=== PATIENT | male | born 1950 | race Caucasian/White ===

== ENCOUNTER → 2016-11-02 | Day surgery (SDC) | payer MEDICARE, BC ==
[2016-11-02] VITALS (9 sets, daily range): BP systolic 110–135; BP diastolic 54–78
[~2016-11-02] VITALS: Ht 182.9 cm; Wt 127.9 kg
[~2016-11-02] MED LIST: Atropine Inj 1mg/10ml Syr IV PRN; Bupivacaine w/Epi 0.25% 30ml Vial INJ ONE; CARTIA XT120 MG ORAL; Dexamethasone 4mg/ml vial ONE; DiphenhydrAMINE 50mg/ml Inj IVP PRN; FLECAINIDE ACE100 MG ORAL; Glycopyrrolate 0.2mg/ml 1ml Vial ONE; HYDROmorphone 1mg/ml Carpuject SUBQ PRN; Hydromorphone 0.5mg/0.5ml inj IVP PRN; Ketorolac 30mg Inj IV PRN; Ketorolac 60mg Inj IV PRN; LEVOTHYROXINE150 MCG ORAL; LIPITOR10 MG ORAL; LISINOPRIL10 MG ORAL; LORAZEPAM1 MG ORAL; LORazepam Inj 2mg/ml 1ml IV PRN; LR 1000ml 1,000 ML IVLG SCH; LR 1000ml ONE; Labetalol 5mg/ml 20ml vial IV PRN; Lidocaine 1% MPF 10mg/ml 5ml ONE; Meperidine 25mg/ml Inj IV PRN; Metoclopramide 10mg/2ml Inj IVP PRN; Midazolam 2mg/2ml Inj IVP PRN; Midazolam 2mg/2ml Inj ONE; NEXIUM20 M1 ORAL; NS Irrig 1000ml ONE; Neostigmine 1mg/ml 10ml Inj ONE; Norco 5mg/325mg tab ORAL PRN; Norco 7.5mg/325mg tab ORAL PRN; OXYCODONE HCL15 M1 ORAL; Oxycodone/Acetaminophen 5-325 ORAL PRN; Propofol 10mg/ml 20ml IV ONE; Sterile Water Irrig 1000ml IRRIG ONE; Tylenol #3 tab (300mg/30mg) ORAL PRN; XARELTO10 MG ORAL; Zemuron 50mg/5ml Inj IV ONE; fentaNYL 100 mcg/2 mL IV ONE; fentaNYL 100 mcg/2 mL IV PRN
--- NOTE | 2016-11-02 07:07 | Pre-Procedure Note/Attestation ---
Pre-Procedure Note/Attestation Complete Prior to Procedure Procedure Narrative: umbilical hernia repair Indications for Procedure Pre-Operative Diagnosis: umbilical hernia Attestation I attest that I discussed the nature of the procedure; its benefits; risks and complications; and alternatives (and the risks and benefits of such alternatives ), prior to the procedure, with the patient (or the patient's legal automobile rental representative). I attest that, if there was a reasonable possibility of needing a blood transfusion, the patient (or the patient's legal automobile rental representative) was given the [facility] standardized written summary, pursuant to the [place] Blood Safety Act ([place] Health and Safety Code # 1645, as amended). I attest that I re-evaluated the patient just prior to the surgery and that there has been no change in the patient's H&P, except as documented below: LISANDRO JENSEN Nov 02, 2016 07:07
--- NOTE | 2016-11-02 08:41 | Anethesia Preoperative Eval ---
Anesthesia Pre-op PMH/ROS General Date of Evaluation: Nov 02, 2016 Time of Evaluation: 08:36 Anesthesiologist: Edinson ASA Score: ASA 3 Mallampati Score Class I : Soft palate, uvula, fauces, pillars visible Class II: Soft palate, uvula, fauces visible Class III: Soft palate, base of uvula visible Class IV: Only hard plate visible Mallampati Classification: Class III Surgeon: Giana Diagnosis: Umbilical Hernia Surgical Procedure: Umbilical Hernia Repair Anesthesia History: none Social History: current smoker Family History: no anesthesia problems Allergies: Coded Allergies: No Known Allergies (Unverified , 11/01/16) Medications: see eMAR Past Medical History Cardiovascular: Reports: HTN, arrhythmia - AFib Pulmonary: Reports: COPD, JI - CPAP Endocrine: Reports: hypothyroidism PSxH Narrative: Pacemaker Placement Anesthesia Pre-op Phys. Exam Physician Exam Last Vital Signs Date Time Temp Pulse Resp B/P Pulse Ox O2 Delivery O2 Flow Rate FiO2 11/02/16 08:00 98.4 80 20 130/65 95 Room Air Constitutional: NAD Neurologic: CN 2-12 intact Cardiovascular: RRR Respiratory: CTA Gastrointestinal: S/NT/ND Airway Exam Mallampati Score: Class III MO: limited Neck: Obese ROM: limited Teeth: missing Anesthesia Pre-op A/P Risk Assessment & Plan Assessment: ASA 3 Status Change Before Surgery: No Pre-Antibiotics Dru Grams Ancef IV Given Within 1 Hr of Incision: Yes Time Given: 08:44 Arvind Neves MD Nov 02, 2016 08:41
--- NOTE | 2016-11-02 09:18 | 48 Hour Post Anesthesia Eval ---
Post Anesthesia Evaluation Procedure: Umbilical Hernia Repair Date of Evaluation: Nov 02, 2016 Time of Evaluation: 12:14 Blood Pressure Systolic: 151 0: 76 Pulse Rate: 84 Respiratory Rate: 18 Temperature (Fahrenheit): 98.2 O2 Sat by Pulse Oximetry: 99 Airway: patent Nausea: No Vomiting: No Pain Intensity: 2 Hydration Status: adequate Cardiopulmonary Status: Stable Mental Status/LOC: patient returned to baseline Follow-up Care/Observations: 0 Post-Anesthesia Complications: 0 Follow-up care needed: ready to discharge Arvind Neves MD Nov 02, 2016 09:18
--- NOTE | 2016-11-02 09:18 | Immediate Post-Op Evaluation ---
Immediate Post-Op Evalulation Immediate Post-Op Evalulation Procedure: Umbilical Hernia Repair Date of Evaluation: Nov 02, 2016 Time of Evaluation: 10:09 IV Fluids: 1000LR Blood Products: 0 Estimated Blood Loss: 7 Urinary Output: 0 Blood Pressure Systolic: 148 Blood Pressure Diastolic: 76 Pulse Rate: 90 Respiratory Rate: 18 O2 Sat by Pulse Oximetry: 98 Temperature (Fahrenheit): 97.7 Pain Score (1-10): 2 Nausea: No Vomiting: No Complications 0 Patient Status: awake, reacts, patent, extubated, none Hydration Status: adequate Dru Grams Ancef IV Given Within 1 Hr of Incision: Yes Time Given: 08:44 Arvind Neves MD Nov 02, 2016 09:18
--- NOTE | 2016-11-02 10:09 | Brief Operative Note ---
Immediate Post Operative Note Operative Note Pre-op Diagnosis: umbilical hernia Procedure: repair of umbilical hernia with mesh Post-op Diagnosis: same Post-op Diagnosis: same as pre-op Surgeon: nichole Anesthesiologist: josefa Anesthesia: general Specimen: none Complications: none Condition: stable Estimated Blood Loss: minimal Drains: none Implant(s) used?: Yes - Vpatch CQur brand 1.7 inch diameter LISANDRO JENSEN Nov 02, 2016 10:09
--- NOTE | 2016-11-02 22:18 | Operative Note - Dictated ---
DATE OF OPERATION: 11/02/2016 SURGEON: Juan Faria M.D. BOX CAR BRACER: None. ANESTHESIOLOGIST: Arvind Neves M.D. ANESTHESIA: General. PREOPERATIVE DIAGNOSIS: Umbilical hernia, incarcerated and irreducible. POSTOPERATIVE DIAGNOSIS: Umbilical hernia, incarcerated and irreducible. NAME OF OPERATION: Repair of incarcerated and irreducible umbilical hernia with Atrium disk mesh. FINDINGS AND INDICATIONS: The patient is an obese 66-year-old male with a history of progressively enlarging umbilical hernia with some pain and tenderness, especially with prolonged standing and pressure. Because of that, he sought attention from his attending physician who referred him to us for evaluation and surgical therapy. At Surgery, indeed a large narrow neck umbilical hernia was found with approximately a 2 cm to 2.2 cm in diameter defect, a decent fascia, and abundant fiber and fatty material inside, which was reduced back into the abdominal cavity after dissecting it free and imbricating the entire sac with the contents. The procedure was then finished with the mesh deployed as described and the wound closed. The patient tolerated it well. DESCRIPTION OF PROCEDURE: With the patient lying in the supine position on the operating table, under general anesthesia, with the entire abdominal region prepped and draped in the usual sterile fashion with Betadine, an infraumbilical curvilinear incision was made. The subcutaneous tissues were divided and the hernial sac was then identified and carefully dissected free all the way down to the fascia. At this point, the contents were then carefully dissected and replaced back into the peritoneum, and the peritoneal edges were then cleansed all the way around to be able to deploy the round mesh. A 1.7-inch diameter Atrium double-layer mesh was then deployed after securing all four corners at 12 o'clock, 3 o'clock, 6 o'clock, and 9 o'clock with through- and-through sutures through the mesh and then through the abdominal wall and ligated below the perineal level under direct visualization once it was parachuted in. The area was irrigated. Hemostasis was adequate. The fascia was then approximated with continuous 0 Vicryl and suture and hemostasis was double checked, which was adequate, and the subcutaneous tissue was approximated with 3-0 Vicryl suture recreating a nice umbilical dimple and the skin with 4-0 Vicryl subcuticular sutures and Steri-Strips. Marcaine 0.25% with epinephrine 30 mL was injected for long-acting local anesthetic. The patient tolerated the procedure well. Estimated blood loss was less than 5 mL. Sponge and needle counts were correct. He went to the recovery room in a stable condition. Juan Faria M.D. DR: DEAAN JOB#: [id number] CC:
== END | disposition home or self-care (01) ==
LOC: SUR 06:51
DX: K42.0 Umbilical hernia with obstruction, without gangrene (principal); I10 Essential (primary) hypertension; E03.9 Hypothyroidism, unspecified; M51.86 Other intervertebral disc disorders, lumbar region; M54.31 Sciatica, right side; F41.9 Anxiety disorder, unspecified; J44.9 Chronic obstructive pulmonary disease, unspecified; F17.210 Nicotine dependence, cigarettes, uncomplicated; G89.29 Other chronic pain; K21.9 Gastro-esophageal reflux disease without esophagitis; E78.00 Pure hypercholesterolemia, unspecified; G47.33 Obstructive sleep apnea (adult) (pediatric); E66.9 Obesity, unspecified; Z68.37 Body mass index [BMI] 37.0-37.9, adult; Z95.0 Presence of cardiac pacemaker; Z79.891 Long term (current) use of opiate analgesic; Z79.51 Long term (current) use of inhaled steroids
CPT/HCPCS: 49587; J0690; J1100; J2250; J2405; J2704; J2710; J3010; J7120; 94003; 94150